=== PATIENT | male | born 1980 | race Two or more races ===

== ENCOUNTER 2017-08-02 04:48 | Emergency (ER) | payer MEDICAID ==
[~2017-08-02] VITALS: Ht 175.3 cm; Wt 99.8 kg
[2017-08-02 05:41] VITALS: BP 140/90
== END 2017-08-02 05:45 | disposition home or self-care (01) ==
LOC: ER 04:53
DX: K02.9 Dental caries, unspecified (principal); F17.210 Nicotine dependence, cigarettes, uncomplicated

== ENCOUNTER 2021-03-09 14:24 | Emergency (ER) | payer MEDICAID ==
[~2021-03-09] VITALS: Ht 175.3 cm; Wt 95.3 kg
[2021-03-09 14:34] VITALS: BP 137/84
== END 2021-03-09 14:32 | disposition left against medical advice (07) ==
LOC: ER 14:24
DX: M25.511 Pain in right shoulder (principal); M79.645 Pain in left finger(s); R42 Dizziness and giddiness; Z53.21 Procedure and treatment not carried out due to patient leaving prior to being seen by health care provider; Y04.8XXA Assault by other bodily force, initial encounter; Y93.89 Activity, other specified; Y92.89 Other specified places as the place of occurrence of the external cause; Y99.8 Other external cause status